=== PATIENT | male | born 1950 | race Caucasian/White ===

== ENCOUNTER 2023-08-12 09:28 | Day surgery (SDC) | payer OTHER ==
[~2023-08-12] VITALS: Ht 170.2 cm; Wt 97.1 kg
[2023-08-12] VITALS (8 sets, daily range): BP systolic 101–134; BP diastolic 41–73; PULSE 65–84; RESP 12–15; O2SAT 90–95
[~2023-08-12 09:28] MED LIST: ASCO500C16 PO; ASPI-498 OR; LEVO112T4 PO; SIMV20TA20 PO
[2023-08-12] MEDS ORDERED: HEPARIN SODIUM (PORCINE) 5000 UNITS/ML 1ML VIAL ONE (12:34)
[2023-08-12] MEDS ORDERED: VERAPAMIL 2.5MG/ML INJ 2ML VIAL IV ONE (12:34)
[2023-08-12] MEDS ORDERED: ANGIOMAX 250 MG VIAL IV ONE (12:34)
[2023-08-12] MEDS ORDERED: fentaNYL CITRATE 100 MCG/2 ML VL ONE (12:35)
[2023-08-12] MEDS ORDERED: MIDAZOLAM HCL 2MG/2ML 2ml VIAL (1mg/ml) ONE (12:35)
[2023-08-12] MEDS ORDERED: SODIUM CHL 0.9% 0 ML ONE (12:35)
[2023-08-12] MEDS ORDERED: LIDOCAINE 2%HCL (LOCAL ANESTH.) INJ 20ML MDV ONE (12:35)
[2023-08-12] MEDS ORDERED: IOHEXOL 350 MG/ML 100ML IJ ONE (12:40)
== END 2023-08-12 15:16 | disposition home or self-care (01) ==
LOC: CATH 09:28
PROVIDERS: ATTEND Internal Medicine Cardiovascular Disease
DX: I25.10 Atherosclerotic heart disease of native coronary artery without angina pectoris (principal); R06.02 Shortness of breath; I11.9 Hypertensive heart disease without heart failure; I77.1 Stricture of artery; E78.5 Hyperlipidemia, unspecified; E03.9 Hypothyroidism, unspecified; E66.9 Obesity, unspecified; M06.9 Rheumatoid arthritis, unspecified; Z79.899 Other long term (current) drug therapy; Z98.890 Other specified postprocedural states; Z79.82 Long term (current) use of aspirin; Z79.01 Long term (current) use of anticoagulants
CPT/HCPCS: 93458; C1894; J1644; J2250; J3010; Q9967; 99152